=== PATIENT | female | born 1965 | race Caucasian/White ===

== ENCOUNTER 2019-05-11 14:45 | Outpatient (CLI) | payer OTHER ==
--- NOTE | 2019-05-11 15:39 | RAD ---
THREE VIEWS OF THE RIGHT WRIST: 05/11/19 COMPARISON: None. HISTORY: Right wrist pain for months. FINDINGS: Three views of the right wrist shows no evidence of acute fracture or dislocation. No significant deg enerative changes are seen. Moderate dorsal soft tissue swelling is seen. IMPRESSION: No evidence of acute osseous abnormality. POS: [facility]
== END 2019-05-11 14:46 | disposition home or self-care (01) ==
LOC: BICRAD 14:45
PROVIDERS: ATTEND Family Medicine
DX: M25.531 Pain in right wrist (principal)